=== PATIENT | female | born 1980 ===

== ENCOUNTER 2016-10-02 19:12 | Emergency (ER) | payer BC ==
[2016-10-02 19:58] VITALS: BP 151/89
[2016-10-02] MEDS ORDERED: Amoxicillin/Clavulanate TAB* 875 MG PO ONE (20:16)
--- NOTE | 2016-10-02 20:25 | UC ---
[facility] HPI - HPI Summary HPI Summary: LEFT UPPER DENTAL PAIN AND SWELLING SINCE THIS MORNING (AT ASPECT OF TOOTH #14) . WILL CALL DENTIST TO SET UP APPOINTMENT TOMORROW. NO FEVER. NO TRAUMA. - History of Current Complaint Chief Complaint: UCDentalProblem Stated Complaint: TOOTH/JAW PAIN Time Seen by Provider: 10/02/16 19:50 Hx Obtained From: Patient Hx Last Menstrual Period: 09/23/16 Onset/Duration: Sudden Onset, Lasting Hours, Still Present Severity: Mild Aggravating: Chewing Related History: Swelling - Allergies/Home Medications Allergies/Adverse Reactions: Allergies Allergy/AdvReac Type Severity Reaction Status Date / Time No Known Allergies Allergy Verified 10/02/16 19:59 Home Medications: Home Medications Ibuprofen TAB* [Advil TAB*] 600 mg PO Q6H PRN 10/02/16 [History Confirmed ] Ortho-Tricycline Lo 1 tab PO DAILY 10/02/16 [History Confirmed 10/02/16] Sertraline* [Zoloft*] 100 mg PO DAILY 10/02/16 [History Confirmed 10/02/16] PMH/Surg Hx/FS Hx/Imm Hx Previously Healthy: Yes - Surgical History Surgical History: Yes Surgery Procedure, Year, and Place: gallbladder - Family History Known Family History: Negative: Diabetes - Social History Occupation: Employed Full-time Lives: With Family Alcohol Use: None Substance Use Type: None Smoking Status (MU): Never Smoked Tobacco Review of Systems Constitutional: Negative Skin: Negative Eyes: Negative ENT: Dental Pain Respiratory: Negative Cardiovascular: Negative Gastrointestinal: Negative Genitourinary: Negative Motor: Negative Neurovascular: Negative Musculoskeletal: Negative Neurological: Negative Psychological: Negative All Other Systems Reviewed And Are Negative: Yes Physical Exam Triage Information Reviewed: Yes Appearance: Well-Appearing, No Pain Distress, Well-Nourished Vital Signs: Initial Vital Signs Temp 98 F 10/02/16 19:48 Pulse 74 10/02/16 19:48 Resp 16 10/02/16 19:48 BP 151/89 10/02/16 19:48 Pulse Ox 98 10/02/16 19:48 Vital Signs Reviewed: Yes Eye Exam: Normal Eyes: Positive: Conjunctiva Clear ENT Exam: Normal ENT: Positive: Normal ENT inspection, Hearing grossly normal, Pharynx normal, TMs normal Dental: Positive: Percussion Tenderness @ - 14, Abscess @ - 14 Neck exam: Normal Neck: Positive: Supple, Nontender, No Lymphadenopathy Respiratory Exam: Normal Respiratory: Positive: Chest non-tender, Lungs clear, Normal breath sounds, No respiratory distress, No accessory muscle use Cardiovascular Exam: Normal Cardiovascular: Positive: RRR, No Murmur, Pulses Normal Abdominal Exam: Normal Musculoskeletal Exam: Normal Neurological Exam: Normal Psychological Exam: Normal Skin Exam: Normal Dental Complaint Course/Dx - Differential Dx/Diagnosis Differential Diagnosis/Dx: Dental Abscess, Dental Caries, Odontogenic Pain, Tonsillitis Provider Diagnoses: ODONTOGENIC PAIN #14; DENTAL ABSCESS Discharge - Discharge Plan Condition: Stable Disposition: HOME Prescriptions: Amoxicillin/Clavulanate TAB* [Augmentin TAB 875*] 875 mg PO BID #20 tab Patient Education Materials: Dental Abscess (ED), Toothache (ED) Referrals: [facility] [Outside] No Primary Care Phys,NOPCP [Primary Care Provider] - [facility]: 1 - TENDERNESS AND SWELLING HERE
== END 2016-10-02 20:29 | disposition home or self-care (01) ==
LOC: UCCORT 19:12
DX: K04.7 Periapical abscess without sinus (principal); K08.89 Other specified disorders of teeth and supporting structures; Z90.49 Acquired absence of other specified parts of digestive tract
CPT/HCPCS: 99212; A9270-GY; G0463